=== PATIENT | female | born 1960 | race Caucasian/White ===

== ENCOUNTER 2021-12-12 20:32 | Inpatient (IN) | payer OTHER ==
[~2021-12-12] VITALS: Ht 170.2 cm; Wt 140.2 kg
[2021-12-12 22:08] LABS: HEMOGLOBIN 9.7 gm/dl (12.3-15.3); RED BLOOD COUNT 4.28 M/UL (4.00-5.10); WHITE BLOOD COUNT 7.6 K/UL (4.5-11.0)
[2021-12-12 22:19] LABS: BUN/CREATININE RATIO 22 (0-10)
[2021-12-13 02:02] LABS: HEMOGLOBIN 9.7 gm/dl (12.3-15.3); RED BLOOD COUNT 4.21 M/UL (4.00-5.10); WHITE BLOOD COUNT 7.4 K/UL (4.5-11.0)
[2021-12-13 02:21] LABS: BUN/CREATININE RATIO 21 (0-10)
[2021-12-13] MEDS ORDERED: METFORMIN HCL500 MG PO (09:28)
[2021-12-13] MEDS ORDERED: ACETAMINOPHEN-1 EAC1 PO (09:28)
[2021-12-13] MEDS ORDERED: GABAPENTIN100 MG PO (09:28)
[2021-12-13] MEDS ORDERED: ALPRAZOLAM1 MG PO (09:28)
[2021-12-13] MEDS ORDERED: BENICAR HCT 401 EAC1 PO (09:29)
[2021-12-13] MEDS ORDERED: LEVOXYL200 MCG PO (09:29)
[2021-12-13] MEDS ORDERED: CARVEDILOL12.5 MG PO (09:29)
[2021-12-13] MEDS ORDERED: LANTUS SOL100 UNIT/1 SQ (09:29)
[2021-12-13] MEDS ORDERED: OMEPRAZOLE40 MG PO (09:30)
[2021-12-13] MEDS ORDERED: PIOGLITAZONE HC30 MG PO (09:30)
[2021-12-13] MEDS ORDERED: ASPIRIN EC81 MG PO (09:30)
[2021-12-13] MEDS ORDERED: PRAVASTATIN SOD40 MG PO (09:30)
[2021-12-14 06:41] LABS: HEMOGLOBIN 10.1 gm/dl (12.3-15.3); RED BLOOD COUNT 4.39 M/UL (4.00-5.10); WHITE BLOOD COUNT 7.2 K/UL (4.5-11.0)
[2021-12-14 07:07] LABS: BUN/CREATININE RATIO 34 (0-10)
[2021-12-14] MEDS ORDERED: DECADRON6 MG PO (10:54)
== END 2021-12-14 13:22 | disposition home or self-care (01) | DRG 177 ==
LOC: ER1 20:32 → CDU 23:25 → M/S 12-13 14:49
PROVIDERS: Emergency Medicine; Internal Medicine; ADMIT Internal Medicine
PROC: 8E0ZXY6 Isolation (ICD-10-PCS; principal; 2021-12-12)
PROC: XW033E5 Introduction of Remdesivir Anti-infective into Peripheral Vein, Percutaneous Approach, New Technology Group 5 (ICD-10-PCS; 2021-12-12)
PROC: 3E0333Z Introduction of Anti-inflammatory into Peripheral Vein, Percutaneous Approach (ICD-10-PCS; 2021-12-12)
DX: U07.1 COVID-19 (principal); J12.82 Pneumonia due to coronavirus disease 2019; J96.01 Acute respiratory failure with hypoxia; E11.9 Type 2 diabetes mellitus without complications; E78.5 Hyperlipidemia, unspecified; E03.9 Hypothyroidism, unspecified; E87.6 Hypokalemia; E86.0 Dehydration; F17.210 Nicotine dependence, cigarettes, uncomplicated; I10 Essential (primary) hypertension; Z99.81 Dependence on supplemental oxygen; Z79.01 Long term (current) use of anticoagulants; Z79.82 Long term (current) use of aspirin; Z90.49 Acquired absence of other specified parts of digestive tract; Z82.49 Family history of ischemic heart disease and other diseases of the circulatory system; Z79.4 Long term (current) use of insulin
CPT/HCPCS: 0241U; 36600; 71045; 80048; 80053; 81001; 82803; 82962; 83036; 83605; 83735; 83880; 84100; 85025; 86140; 87040; 87086; 93005; 96374; 96376; 99285; G0378; J0248; J1100; J1650; J7030; Q9967